=== PATIENT | male | born 1990 | race Caucasian/White ===

== ENCOUNTER 2021-05-21 20:37 | Emergency (ER) | payer OTHER ==
[~2021-05-21 20:37] MED LIST: FLEXERIL10 MG PO; MEDROL 4MG DOSEP4 MG PO
[2021-05-21] MEDS ORDERED: NAPROXEN500 MG PO (21:41)
[2021-05-21] MEDS ORDERED: BACLOFEN 10MG T10 MG PO (21:41)
== END 2021-05-21 23:03 | disposition home or self-care (01) ==
LOC: FER 20:37
DX: S50.312A Abrasion of left elbow, initial encounter (principal); T14.8XXA Other injury of unspecified body region, initial encounter; M54.2 Cervicalgia; R51.9 Headache, unspecified; M25.552 Pain in left hip; M25.511 Pain in right shoulder; Z23 Encounter for immunization; Z98.890 Other specified postprocedural states; V23.9XXA Unspecified motorcycle rider injured in collision with car, pick-up truck or van in traffic accident, initial encounter; Y92.410 Unspecified street and highway as the place of occurrence of the external cause
CPT/HCPCS: 70450; 72125; 73070; 90471; 90715

== ENCOUNTER 2021-11-23 03:09 | Emergency (ER) | payer OTHER ==
[~2021-11-23 03:09] MED LIST changes: +BACLOFEN 10MG T10 MG PO; +NAPROXEN500 MG PO
[2021-11-23] MEDS ORDERED: IMITREX50 MG PO (09:29)
== END 2021-11-23 10:34 | disposition home or self-care (01) ==
LOC: FER 03:09
DX: G44.009 Cluster headache syndrome, unspecified, not intractable (principal)
CPT/HCPCS: 70450; 96372; J1100; J2765; J3030

== ENCOUNTER 2021-11-27 03:25 | Emergency (ER) | payer OTHER ==
[~2021-11-27 03:25] MED LIST changes: +IMITREX50 MG PO
[2021-11-27] MEDS ORDERED: ATARAX25 MG PO (06:05)
[2021-11-27] MEDS ORDERED: MEDROL 4MG DOSEP4 MG PO (06:05)
[2021-11-27] MEDS ORDERED: PEPCID AC20 MG PO (06:05)
== END 2021-11-27 06:20 | disposition home or self-care (01) ==
LOC: FER 03:25
DX: T78.3XXA Angioneurotic edema, initial encounter (principal)
CPT/HCPCS: 99283; J1100